=== PATIENT | female | born 1955 ===

== ENCOUNTER → 2022-06-26 14:25 | Outpatient (BNVA) | payer MEDICARE, SELFPAY | PROVIDERS: PCP Internal Medicine; Visit Provider Student in an Organized Health Care Education/Training Program | DX: M19.041 Primary osteoarthritis, right hand (principal); M19.042 Primary osteoarthritis, left hand; M25.551 Pain in right hip; M25.552 Pain in left hip | CPT/HCPCS: 99202 ==